=== PATIENT | female | born 1985 | race African-American/Black ===

== ENCOUNTER 2017-03-25 15:00 | Emergency (ER) | payer OTHER ==
[~2017-03-25] VITALS: Ht 177.8 cm; Wt 154.2 kg
[2017-03-25] MEDS ORDERED: CLONIDINE0.1 PO (16:16)
[2017-03-25] MEDS ORDERED: LISINOPRIL-HCT1 EACH PO (16:16)
[2017-03-25] MEDS ORDERED: IBUPROFEN 800800 M1 PO (16:17)
[2017-03-25 18:05] VITALS: BP 147/72
[2017-03-28 17:07] LABS: CHLAMYDIA TRACHOMATIS-PCR Negative (Negative); NEISSERIA GONORRHEA-PCR Negative (Negative)
== END 2017-03-25 18:05 | disposition home or self-care (01) ==
LOC: ER 15:00
PROVIDERS: Emergency Medicine
DX: Z20.2 Contact with and (suspected) exposure to infections with a predominantly sexual mode of transmission (principal); R05 Cough; I10 Essential (primary) hypertension; F10.99 Alcohol use, unspecified with unspecified alcohol-induced disorder